=== PATIENT | male | born 1950 | race Caucasian/White ===

== ENCOUNTER 2017-01-05 04:24 | Emergency (ER) | payer BC ==
[~2017-01-05] VITALS: Ht 180.3 cm; Wt 79.5 kg
[~2017-01-05 04:24] MED LIST: CARAFATE 1GM1 G PO; MOTRIN 800800 MG/TAB PO; NORCO 325 MG-51 TAB PO; PRILOSEC 20MG20 MG PO
[2017-01-05 04:31] VITALS: TEMP 98.4
[2017-01-05 04:59] LABS: BASO % 0.4 % (0.0-2.0); EOS # 0.2 (0.0-0.7); EOS % 2.5 % (0-4.0); GRAN # 3.3 (1.4-6.5); GRAN % 43.9 % (42.2-75.2); HEMATOCRIT 47.3 % (42.0-52.0); HEMOGLOBIN 15.8 g/dl (13.5-18.0); LYMPH # 3.2 (1.2-3.4); LYMPH % 42.9 % (20.0-51.0); MEAN CELL VOLUME 90 fl (80.0-100.0); MEAN CORPUSCULAR HEMOGLOBIN 30 pg (27.0-31.0); MEAN CORPUSCULAR HGB CONC 33 g/dl (33.0-37.0); MEAN PLATELET VOLUME 9.7 fl (7.4-10.4); MONO # 0.8 (0.1-0.6); PLATELET COUNT 236 K/mm3 (130-400); RED BLOOD COUNT 5.23 M/mm3 (4.20-5.60); WHITE BLOOD COUNT 7.5 K/mm3 (4.8-10.8)
[2017-01-05 05:04] LABS: ADJUSTED CALCIUM 9.2 mg/dL (8.4-10.2); ALANINE AMINOTRANSFERASE 33 U/L (21-72); ALBUMIN 4.5 gm/dL (3.5-5.0); ALKALINE PHOSPHATASE 87 U/L (50-136); ANION GAP 14 mmol/L (7-16); BILIRUBIN,TOTAL 2.4 mg/dL (0.0-1.0); BLOOD UREA NITROGEN 21 mg/dL (9-20); CALCIUM 9.6 mg/dL (8.4-10.2); CARBON DIOXIDE 27 mmol/L (22-30); CHLORIDE 101 mmol/L (98-107); CREATININE, serum 1.01 mg/dL (0.66-1.25); GLUCOSE 119 mg/dL (74-106); LIPASE 62 U/L (23-300); POTASSIUM 3.8 mmol/L (3.4-5.0); SODIUM 143 mmol/L (137-145); TOTAL PROTEIN 7.7 gm/dL (6.4-8.2)
[2017-01-05 05:25] LABS: TROPONIN-I < 0.012 ng/mL (0.000-0.034)
[2017-01-05] MEDS ORDERED: CARAFATE 1GM1 G PO (11:48)
[2017-01-05] MEDS ORDERED: PEPCID 20MG TAB20 MG PO (11:48)
[2017-01-05 12:19] VITALS: BP 127/77; PULSE 61
== END 2017-01-05 12:22 | disposition home or self-care (01) ==
LOC: COL.ER 04:24
PROVIDERS: Emergency Medicine
DX: R10.11 Right upper quadrant pain (principal); R10.13 Epigastric pain; Z85.46 Personal history of malignant neoplasm of prostate
CPT/HCPCS: J2270; J2405; Q9967

== ENCOUNTER → 2017-03-19 | Outpatient (CLI) | payer BC ==
[~2017-03-19] MED LIST changes: +PEPCID 20MG TAB20 MG PO; +ZANTAC 150MG T150 MG PO
== END ==
LOC: COL.RAD 08:14
DX: R14.0 Abdominal distension (gaseous) (principal)
CPT/HCPCS: A9541

== ENCOUNTER 2017-03-27 08:06 | Day surgery (SDC) | payer BC ==
[~2017-03-27] VITALS: Ht 180.3 cm; Wt 80.3 kg
[~2017-03-27 08:06] MED LIST changes: -ZANTAC 150MG T150 MG PO
[2017-03-27 08:27] VITALS: BP 136/82; PULSE 71; TEMP 98.2
[2017-03-27] MEDS ORDERED: MOTRIN 800800 MG/TAB PO (08:32)
[2017-03-27 10:00] VITALS: BP 130/76; PULSE 54; TEMP 97.6
[2017-03-27 10:15] VITALS: BP 130/72; PULSE 60
[2017-03-27] MEDS ORDERED: ZANTAC 150MG T150 MG PO (10:17)
[2017-03-27 10:30] VITALS: BP 129/74; PULSE 62
[2017-03-27 11:00] VITALS: BP 120/74; PULSE 53
== END 2017-03-27 10:55 | disposition home or self-care (01) ==
LOC: SDCO 08:06
DX: K29.80 Duodenitis without bleeding (principal); K22.2 Esophageal obstruction; K44.9 Diaphragmatic hernia without obstruction or gangrene; K29.30 Chronic superficial gastritis without bleeding; Z90.49 Acquired absence of other specified parts of digestive tract; K21.9 Gastro-esophageal reflux disease without esophagitis; Z90.79 Acquired absence of other genital organ(s); Z85.46 Personal history of malignant neoplasm of prostate; Z86.010 Personal history of colon polyps
CPT/HCPCS: OP; J2250; J3010; J7030